=== PATIENT | male | born 2005 | race Caucasian/White ===

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

== ENCOUNTER 2023-03-06 00:17 | Emergency (ER) | payer SELFPAY ==
[~2023-03-06] VITALS: Ht 182.8 cm; Wt 81.6 kg
== END 2023-03-06 01:07 ==
LOC: ED 00:17
DX: Z00.00 Encounter for general adult medical examination without abnormal findings (principal); F17.200 Nicotine dependence, unspecified, uncomplicated